=== PATIENT | male | born 2000 | race Caucasian/White ===

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

== ENCOUNTER 2022-04-28 09:47 | Emergency (ER) | payer SELFPAY ==
[~2022-04-28] VITALS: Ht 172.7 cm; Wt 59.1 kg
[2022-04-28] MEDS ORDERED: ACETAMINOPHEN/CODEINE 300-30 MG TABLET PO ONE (10:15)
[2022-04-28] MEDS ORDERED: KETOROLAC TROMETHAMINE 60 MG/2 ML VIAL IM ONE (10:15)
[2022-04-28 12:52] VITALS: BP 127/96
[2022-04-28] MEDS ORDERED: IBUP-1554 PO (13:01)
[2022-04-28] MEDS ORDERED: ACET-2080 PO (13:01)
== END 2022-04-28 13:28 | disposition home or self-care (01) ==
LOC: EMS 09:50
DX: S82.002A Unspecified fracture of left patella, initial encounter for closed fracture (principal); X58.XXXA Exposure to other specified factors, initial encounter; Y93.89 Activity, other specified; Y92.89 Other specified places as the place of occurrence of the external cause; Y99.8 Other external cause status
CPT/HCPCS: 99283; 29505; 73562; 96372; J1885